=== PATIENT | male | born 1955 | race Caucasian/White ===

== ENCOUNTER 2021-11-17 16:21 | Outpatient (CLI) | payer MEDICARE, OTHER | END 2021-11-17 16:22 | disposition home or self-care (01) | LOC: CSHMRI 16:21 | PROVIDERS: ATTEND Nurse Practitioner Adult Health | DX: M54.2 Cervicalgia (principal); M54.10 Radiculopathy, site unspecified; M47.812 Spondylosis without myelopathy or radiculopathy, cervical region; M48.02 Spinal stenosis, cervical region | CPT/HCPCS: 72141 ==

== ENCOUNTER 2025-07-23 08:38 | Day surgery (SDC) | payer MEDICARE ==
[2025-07-17 10:58] VITALS: BMI 24.6
[2025-07-23] MEDS ORDERED: Ketorolac Tromethamine 30 MG (1 mL) VIAL ONE (08:54)
[2025-07-23] MEDS ORDERED: Acetaminophen 500 MG TAB ONE (08:54)
[2025-07-23] MEDS ORDERED: Bupivacaine/Epinephrine 0.25% 30 ML VIAL ONE (08:57)
[2025-07-23] MEDS ORDERED: CEFAZOLIN 2 GM VIAL ONE (09:57)
[2025-07-23] MEDS ORDERED: Lidocaine 1% PF 5 ML VIAL ONE (10:35)
== END 2025-07-23 11:37 | disposition home or self-care (01) ==
LOC: CSHSDC 08:38
PROVIDERS: ATTEND Specialist
PROC: 0JH60WZ Insertion of Totally Implantable Vascular Access Device into Chest Subcutaneous Tissue and Fascia, Open Approach (ICD-10-PCS; principal; 2025-07-23)
DX: C18.2 Malignant neoplasm of ascending colon (principal)
CPT/HCPCS: 36561; 71045; C1788; J1642; J1885